=== PATIENT | female | born 1965 | race Caucasian/White ===

== ENCOUNTER 2016-09-24 14:42 | Emergency (ER) ==
[2016-09-24 14:47] VITALS: BP 114/62; TEMP 97.6; BMI 26.6
[2016-09-24] MEDS ORDERED: SOLU-MEDROL 125 MG ONE (14:58)
[2016-09-24] MEDS ORDERED: SOLU-MEDROL 125 MG IVP STA (15:04)
[2016-09-24 15:07] LABS: BASOPHILS # (AUTO) 0.1 K/uL (0-0.2); BASOPHILS % (AUTO) 0.4 % (0.0-3.0); EOSINOPHILS # (AUTO) 0.4 K/ul (0.0-0.7); EOSINOPHILS % (AUTO) 3.8 % (0.0-7.0); HEMATOCRIT 41.3 % (37.0-47.0); IMMATURE GRANULOCYTE % (AUTO) 0.4 % (0.0-5.0); LYMPHOCYTES # (AUTO) 3.7 K/uL (0.60-3.4); LYMPHOCYTES % (AUTO) 32.4 (10.0-50.0); MEAN CORPUSCULAR HEMOGLOBIN 29.5 pg (27.0-31.0); MEAN CORPUSCULAR HGB CONC 33.9 (31.8-35.4); MEAN CORPUSCULAR VOLUME 87.1 fl (81.0-99.0); MONOCYTES % (AUTO) 8.5 (0-10); NEUTROPHILS # (AUTO) 6.2 K/ul (2.0-6.9); NEUTROPHILS % (AUTO) 54.5; PLATELET COUNT 314 10^3/uL (140-440); RED BLOOD COUNT 4.74 10^6/ul (4.20-5.40); WHITE BLOOD COUNT 11.36 K/ul (4.6-10.2)
[2016-09-24 15:26] LABS: ALBUMIN 3.7 g/dL (3.4-5.0); ALBUMIN/GLOBULIN RATIO 1.09; ANION GAP 19.5; BILIRUBIN,TOTAL 0.8 mg/dL (0.00-1.20); BUN/CREATININE RATIO 14.42; CALCIUM 9.5 mg/dL (8.2-10.2); CREATININE 1.04 mg/dL (0.60-1.30); POTASSIUM 3.5 mmol/L (3.5-5.10); TOTAL PROTEIN 7.1 g/dL (6.4-8.2)
[2016-09-24] MEDS ORDERED: ADRENALIN 1:1000 SDV IM STA (15:38)
[2016-09-24] MEDS ORDERED: PROTONIX IV IVP STA (15:43)
[2016-09-24] MEDS ORDERED: EPINEPHRINE 1:1,000 AMP ONE (15:45)
[2016-09-24] MEDS ORDERED: PEPCID IVP STA (15:47)
[2016-09-24] MEDS ORDERED: SODIUM CHLORIDE 1,000 ML IV STA (15:49)
--- NOTE | 2016-09-24 16:51 | ED.PDOC ---
General ED Provider: Dr. 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: Still present Initial Severity: Mild Current Severity: None Aggravating: Reports: None Alleviating: Reports: None Associated Signs and Symptoms: Denies: Fever, Erythema, Drainage, Swelling, Lymphadenopathy, Numbness, Tingling, Limited ROM Related History: Reports: Unprovoked Animal Available for Observation: No Animal Control Notified: No Infection/Sepsis Risk Factors: Present: None Drainage: Present: None Differential Diagnoses: Other (BEE STING) Review of Systems - Review Of Systems Constitutional: Reports: No symptoms Eyes: Reports: No symptoms Ears, Nose, Mouth, Throat: Reports: No symptoms Respiratory: Reports: No symptoms Cardiac: Reports: No symptoms GI: Reports: No symptoms : Reports: No symptoms Musculoskeletal: Reports: No symptoms Skin: Reports: Other (URTICARIA ) Neurological: Reports: No symptoms Endocrine: Reports: No symptoms Hematologic/Lymphatic: Reports: No symptoms All Other Systems: Reviewed and Negative Past Medical History - Past Medical History Previously Healthy: Yes Endocrine: Reports: None Cardiovascular: Reports: None Respiratory: Reports: None Hematological: Reports: None Gastrointestinal: Reports: None Genitourinary: Reports: None Neuro/Psych: Reports: None Musculoskeletal: Reports: None Cancer: Reports: None Last Menstrual Period: menopause - Surgical History General Surgical History: Reports: None - Family History Family History: Reports: None - Social History Smoking Status: Never smoker Hx Substance Use: No Alcohol Screening: Occasionally - Immunizations Tetanus Shot up to Date: Yes Physical Exam - Physical Exam Appearance: Well-appearing, No pain distress, Well-nourished Eyes: LUIS, EOMI, Conjunctiva clear ENT: Ears normal, Nose normal, Oropharynx normal Respiratory: Airway patent, Breath sounds clear, Breath sounds equal, Respirations nonlabored Cardiovascular: RRR, Pulses normal, No rub, No murmur GI/: Soft, Nontender, No masses, Bowel sounds normal, No Organomegaly Musculoskeletal: Normal strength, ROM intact, No edema, No calf tenderness Skin: Warm, Dry (URTICARIA ARMS LEGS ) Neurological: Sensation intact, Motor intact, Reflexes intact, Cranial nerves intact, Alert, Oriented Psychiatric: Affect appropriate, Mood appropriate Critical Care Note - Critical Care Note Total Time (mins): 0 Course - Course Hematology/Chemistry: 09/24/16 14:55 09/24/16 14:55 Orders, Labs, Meds: Lab Review 09/24/16 14:55 WBC 11.36 H RBC 4.74 Hgb 14.0 Hct 41.3 MCV 87.1 MCH 29.5 MCHC 33.9 RDW Coeff of Mere 13.6 Plt Count 314 Immature Gran % (Auto) 0.4 Neut % (Auto) 54.5 Lymph % (Auto) 32.4 Mills % (Auto) 8.5 Eos % (Auto) 3.8 Baso % (Auto) 0.4 Immature Gran # (Auto) 0.0 Neut # 6.2 Lymph # 3.7 H Mills # 1.0 Eos # 0.4 Baso # 0.1 Sodium 141 Potassium 3.5 Chloride 103 Carbon Dioxide 22 Anion Gap 19.5 BUN 15 Creatinine 1.04 Estimated GFR (MDRD) 55.00 BUN/Creatinine Ratio 14.42 Glucose 118 H Calcium 9.5 Total Bilirubin 0.80 AST 40 H ALT 46 Alkaline Phosphatase 70 Total Protein 7.1 Albumin 3.7 Globulin 3.4 Albumin/Globulin Ratio 1.09 Orders Category Date Time Status EKG-(ED ONLY) Stat CARDIO 09/24/16 14:51 Stop Req EKG-(ED ONLY) Stat CARDIO 09/24/16 15:07 Completed CBC W/ AUTO DIFF Stat LAB 09/24/16 14:55 Completed COMPREHENSIVE METABOLIC PANEL Stat LAB 09/24/16 14:55 Completed Epinephrine Amp [Epinephrine 1:1,000 Amp] MEDS 09/24/16 15:45 Discontinued 1 mg .ROUTE .STK-MED ONE Epinephrine [Adrenalin 1:1000 Sdv] MEDS 09/24/16 15:38 Discontinued 0.2 mg IM ONCE STA Famotidine Inj [Pepcid] MEDS 09/24/16 15:47 Discontinued 20 mg IVP ONCE STA Methylprednisolone Sod Succ/Pf [Solu-Medrol 125 mg] MEDS 09/24/16 14:58 Discontinued 125 mg .ROUTE .STK-MED ONE Methylprednisolone Sod Succ/Pf [Solu-Medrol 125 mg] MEDS 09/24/16 15:04 Discontinued 125 mg IVP ONCE STA Sodium Chloride 0.9% [Sodium Chloride] 1,000 ml MEDS 09/24/16 15:49 Discontinued IV BOLUS Medications Discontinued Medications Generic Name Dose Route Start Last Admin Trade Name Armando PRN Reason Stop Dose Admin Epinephrine HCl 0.2 mg 09/24/16 15:38 09/24/16 15:57 Adrenalin 1:1000 Sdv IM 09/24/16 15:39 Not Given ONCE STA Famotidine 20 mg 09/24/16 15:47 09/24/16 16:03 Pepcid IVP 09/24/16 15:48 20 mg ONCE STA Administration Sodium Chloride 1,000 mls @ 1,000 mls/hr 09/24/16 15:49 09/24/16 15:58 Sodium Chloride IV 09/24/16 16:48 1,000 mls/hr BOLUS STA Administration Methylprednisolone Sodium Succinate 125 mg 09/24/16 15:04 09/24/16 15:06 Solu-Medrol 125 Mg IVP 09/24/16 15:05 125 mg ONCE STA Administration Vital Signs: Temp Pulse Resp BP Pulse Ox 09/24/16 14:42 97.6 F 92 H 14 114/62 94 L Departure - Departure Time of Disposition: 16:51 Disposition: HOME SELF-CARE Discharge Problem: Allergic state Bee sting Qualifiers: Encounter type: initial encounter Instructions: Insect Bite or Sting (ED) Condition: Good Pt referred to PMD for follow-up: Yes Additional Instructions: Please call your Family Physician as soon as possible to schedule a follow-up appointment. Allergies/Adverse Reactions: Allergies No Known Allergies Allergy (Unverified 09/24/16 14:48) Home Medications: Ambulatory Orders 1 [No Reported Medications] 09/24/16
== END 2016-09-24 17:05 | disposition home or self-care (01) ==
LOC: ED 14:42
DX: T63.441A Toxic effect of venom of bees, accidental (unintentional), initial encounter (principal); L50.9 Urticaria, unspecified
CPT/HCPCS: 36415; 80053; 85025; 93005; 93010; 96361; 96372; 96374; 96375; 99283